=== PATIENT | male | born 1960 | race Caucasian/White ===

== ENCOUNTER 2016-09-18 08:50 | Observation (INO) | payer MEDICARE, OTHER ==
[2016-09-18] MEDS ORDERED: Sodium Chloride 0.9% 1,000 ML IV ONE (09:20)
[2016-09-18] MEDS ORDERED: Sodium Chloride 0.9% 1,000 ML ONE (09:34)
[2016-09-18 09:40] LABS: BASO % 0.8 % (0.0-2.0); EOS # 0.1 K/uL (0.0-0.7); EOS % 1.3 % (0.0-4.0); HEMATOCRIT 45.6 % (35.0-51.0); LYMPH # 1.1 K/uL (1.0-4.3); LYMPH % 22.6 % (20.0-40.0); MEAN CELL VOLUME 95.9 fL (80.0-94.0); MEAN CORPUSCULAR HEMOGLOBIN 32.1 pg (27.0-31.0); MEAN CORPUSCULAR HGB CONC 33.5 g/dL (33.0-37.0); MEAN PLATELET VOLUME 8.3 fL (7.2-11.7); MONO # 0.4 K/uL (0.0-0.8); MONO % 9.1 % (0.0-10.0); RED CELL DISTRIBUTION WIDTH 13.7 % (11.5-14.5); WHITE BLOOD COUNT 4.7 K/uL (4.8-10.8)
[2016-09-18 09:45] LABS: CHLORIDE 101 mmol/L (98-107); POTASSIUM 3.7 mmol/L (3.6-5.2); SODIUM 135 mmol/L (132-148)
[2016-09-18 09:47] LABS: BILIRUBIN,TOTAL 0.6 mg/dL (0.2-1.3); CARBON DIOXIDE 23 mmol/L (22-30); GFR AFRICAN-AMERICAN > 60
[2016-09-18 09:48] LABS: ALB/GLOB RATIO 1.6 (1.0-2.1); ALKALINE PHOSPHATASE 66 U/L (38-126); ALT/SGPT 39 U/L (21-72); AST/SGOT 34 U/L (17-59); BLOOD UREA NITROGEN 13 mg/dL (9-20); CALCIUM 9.3 mg/dl (8.6-10.4); GLUCOSE,RANDOM 97 mg/dL (75-110); TOTAL PROTEIN 7.4 g/dL (6.3-8.3)
[2016-09-18 09:59] LABS: RBC URINE < 1 /hpf (0-3); URINE BILIRUBIN NEGATIVE (NEGATIVE); URINE BLOOD NEGATIVE (NEGATIVE); URINE COLOR Straw (YELLOW); URINE GLUCOSE (UA) NORMAL (Normal); URINE KETONE NEGATIVE (NEGATIVE); URINE LEUKOCYTE ESTERASE NEG Leu/uL (Negative); URINE PROTEIN NEGATIVE (NEGATIVE); URINE UROBILINOGEN NORMAL mg/dL (0.2-1.0)
--- NOTE | 2016-09-18 11:19 | C.PDOC ---
History Of Present Illness A 56 y/o male presents to the ER c/o left sided abdominal pain for a few days. Pt denies nausea, vomiting, diarrhea, fever, chills, trauma to the area, or any other complaints. Pt admits to drinking 3 beers a day. Pt has been evaluated at [facility] [place] and was admitted for an inflamed pancreas then the pt signed out AMA. Time Seen by Provider: 09/18/16 09:06 Chief Complaint (Nursing): Abdominal Pain History Per: Patient History/Exam Limitations: language barrier Onset/Duration Of Symptoms: Days Current Symptoms Are (Timing): Still Present Severity: Mild Location Of Pain/Discomfort: LUQ, LLQ Associated Symptoms: denies: Fever, Nausea, Vomiting Recent travel outside of the [place]: No Additional History Per: Patient Past Medical History Reviewed: Historical Data, Nursing Documentation, Vital Signs Vital Signs: Last Vital Signs Temp 97.9 F 09/18/16 08:55 Pulse 75 09/18/16 11:23 Resp 18 09/18/16 11:23 BP 126/81 09/18/16 11:23 Pulse Ox 99 09/18/16 11:23 - Medical History PMH: Hiatal Hernia (repaired), Pancreatitis Family History: States: Unknown Family Hx - Social History Hx Tobacco Use: Yes Hx Alcohol Use: Yes Hx Substance Use: No - Immunization History Hx Tetanus Toxoid Vaccination: Yes Hx Influenza Vaccination: Yes Hx Pneumococcal Vaccination: No Review Of Systems Except As Marked, All Systems Reviewed And Found Negative. Constitutional: Negative for: Fever, Chills, Other (Trauma to the area) Gastrointestinal: Positive for: Abdominal Pain. Negative for: Nausea, Vomiting , Diarrhea Physical Exam - Physical Exam Appears: Non-toxic, No Acute Distress Skin: Warm, Dry Head: Atraumatic, Normacephalic Eye(s): bilateral: Normal Inspection, EOMI Nose: Normal Cardiovascular: Rhythm Regular, No Murmur Respiratory: Normal Breath Sounds, No Rales, No Rhonchi, No Wheezing Gastrointestinal/Abdominal: Soft, Tenderness (Mild LUQ tenderness) Neurological/Psych: Oriented x3, Normal Speech, Normal Cognition, Other (No focal deficit) ED Course And Treatment - Laboratory Results Result Diagrams: 09/18/16 09:27 09/18/16 09:27 O2 Sat by Pulse Oximetry: 99 (RA) Pulse Ox Interpretation: Normal Progress Note: Impression: 56 y/o c/o left sided abdominal pain for a few days. Plans: Blood labs, Pepcid, Toradol, IV fluids, US abd, reassess and disposition. Patient is resting comfortably, abdomen remains soft, and patient is tolerating PO. Patient feels comfortable going home. Patient will be discharged home. - Scribe Statement The provider has reviewed the documentation as recorded by the Scribe Aliyah ashby All medical record entries made by the Scribe were at my direction and personally dictated by me. I have reviewed the chart and agree that the record accurately reflects my personal performance of the history, physical exam, medical decision making, and the department course for this patient. I have also personally directed, reviewed, and agree with the discharge instructions and disposition.
--- NOTE | 2016-09-18 11:39 | C.PDOC ---
History Of Present Illness A 56 y/o male presents to the ER c/o left sided abdominal pain since yesterday. Pt denies nausea, vomiting, diarrhea, fever, chills, trauma to the area, or any other complaints. Pt admits to drinking 3 beers a day. Pt has been evaluated at [facility] [place] and was admitted for an "inflamed pancreas" and "clogged arteries" then the pt signed out AMA. 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 [place] records evaluated: Lipase of 698; CT shows 4.9 infrarenal abdominal aortic aneurym . ) Past Medical History Reviewed: Historical Data, Nursing Documentation, Vital Signs Vital Signs: Last Vital Signs Temp 97.6 F 09/18/16 12:04 Pulse 74 09/18/16 12:04 Resp 16 09/18/16 12:04 BP 151/89 H 09/18/16 12:04 Pulse Ox 100 09/18/16 12:04 - Medical History PMH: Hiatal Hernia (repaired), Pancreatitis Family History: States: Unknown Family Hx - Social History Hx Tobacco Use: Yes Hx Alcohol Use: Yes Hx Substance Use: No - Immunization History Hx Tetanus Toxoid Vaccination: Yes Hx Influenza Vaccination: Yes Hx Pneumococcal Vaccination: No Review Of Systems Except As Marked, All Systems Reviewed And Found Negative. Constitutional: Negative for: Fever, Chills, Other (Trauma to the area) Gastrointestinal: Positive for: Abdominal Pain. Negative for: Nausea, Vomiting , Diarrhea Physical Exam - Physical Exam Appears: Well, Non-toxic, No Acute Distress Skin: Normal Color, Warm, Dry Head: Atraumatic, Normacephalic Eye(s): bilateral: Normal Inspection, EOMI Nose: Normal Oral Mucosa: Moist Neck: Normal, Normal ROM, Supple Chest: Symmetrical Cardiovascular: Rhythm Regular, No Murmur Respiratory: Normal Breath Sounds, No Accessory Muscle Use, Other (Speaking in full sentences) Gastrointestinal/Abdominal: Soft, Tenderness (Mild LUQ tenderness) Back: No CVA Tenderness, No Vertebral Tenderness Neurological/Psych: Oriented x3, Normal Speech, Other (No focal deficit) ED Course And Treatment - Laboratory Results Result Diagrams: 09/18/16 09:27 09/18/16 09:27 O2 Sat by Pulse Oximetry: 99 (RA) Progress Note: Impression: 56 y/o c/o left sided abdominal pain for a few days. Plans: Blood labs, Pepcid, Toradol, IV fluids, US abd. CAse discussed with Dr Galdamez, who agrees upon treatment and admission. Disposition - Disposition Disposition: HOSPITALIZED Disposition Time: 12:00 Condition: STABLE - Clinical Impression Clinical Impression: Abdominal pain, AAA (abdominal aortic aneurysm) - Scribe Statement The provider has reviewed the documentation as recorded by the Scribe Aliyah ashby All medical record entries made by the Scribe were at my direction and personally dictated by me. I have reviewed the chart and agree that the record accurately reflects my personal performance of the history, physical exam, medical decision making, and the department course for this patient. I have also personally directed, reviewed, and agree with the discharge instructions and disposition.
[2016-09-18 11:40] LABS: ALCOHOL SERUM < 10 mg/dl (0-10)
[2016-09-18] MEDS: Sodium Chloride 0.9% 1,000 ML IV SCH ×2 (14:12→23:45)
[2016-09-18 17:10] VITALS: RESP 20
[2016-09-19 01:26] VITALS: BP 121/73; PULSE 72; TEMP 97.7; O2SAT 95
--- NOTE | 2016-09-19 10:56 | CP.PCM.DIS ---
Provider - Provider Date of Admission: 09/18/16 11:32 Attending physician: Bowen Barrios MD Time Spent in preparation of Discharge (in minutes): 30 Hospital Course - Lab Results Lab Results: Most Recent Lab Values WBC 4.7 K/uL (4.8-10.8) L 09/18/16 09: RBC 4.76 Mil/uL (4.40-5.90) 09/18/16 09: Hgb 15.3 g/dL (12.0-18.0) 09/18/16 09: Hct 45.6 % (35.0-51.0) 09/18/16 09: MCV 95.9 fL (80.0-94.0) H 09/18/16 09: MCH 32.1 pg (27.0-31.0) H 09/18/16 09: MCHC 33.5 g/dL (33.0-37.0) 09/18/16 09: RDW 13.7 % (11.5-14.5) 09/18/16 09: Plt Count 137 K/uL (130-400) 09/18/16 09: MPV 8.3 fL (7.2-11.7) 09/18/16 09: Neut % (Auto) 66.2 % (50.0-75.0) 09/18/16 09: Lymph % (Auto) 22.6 % (20.0-40.0) 09/18/16 09: [place] % (Auto) 9.1 % (0.0-10.0) 09/18/16 09: Eos % (Auto) 1.3 % (0.0-4.0) 09/18/16 09: Baso % (Auto) 0.8 % (0.0-2.0) 09/18/16: Neut # 3.1 K/uL (1.8-7.0) 09/18/16 09: Lymph # 1.1 K/uL (1.0-4.3) 09/18/16 09:27 Swift # 0.4 K/uL (0.0-0.8) 09/18/16 09: Eos # 0.1 K/uL (0.0-0.7) 09/18/16: Baso # 0.0 K/uL (0.0-0.2) 09/18/16: Sodium 135 mmol/L (132-148) 09/18/16: Potassium 3.7 mmol/L (3.6-5.2) 09/18/16: Chloride 101 mmol/L (98-107) 09/18/16: Carbon Dioxide 23 mmol/L (22-30) 09/18/16: Anion Gap 15 (10-20) 09/18/16: BUN 13 mg/dL (9-20) 09/18/16: Creatinine 0.8 MG/DL (0.8-1.5) 09/18/16 Est GFR ( Amer) > 60 09/18/16 Est GFR (Non-Af Amer) > 60 09/18/16: Random Glucose 97 mg/dL (75-110) 09/18/16 Calcium 9.3 mg/dl (8.6-10.4) 09/18/16 Total Bilirubin 0.6 mg/dL (0.2-1.3) 09/18/16: AST 34 U/L (17-59) 09/18/16 ALT 39 U/L (21-72) 09/18/16: Alkaline Phosphatase 66 U/L (38-126) 09/18/16: Total Protein 7.4 g/dL (6.3-8.3) 09/18/16 Albumin 4.5 g/dL (3.5-5.0) 09/18/16 Globulin 2.9 gm/dL (2.2-3.9) 09/18/16 Albumin/Globulin Ratio 1.6 (1.0-2.1) 09/18/16 Lipase 158 U/L (23-300) 09/18/16: Urine Color Straw (YELLOW) 09/18/16: Urine Clarity Clear (Clear) 09/18/16: Urine pH 7.0 (5.0-8.0) 09/18/16 Ur Specific [place] 1.008 (1.003-1.030) 09/18/16 09:27 Urine Protein Negative mg/dL (NEGATIVE) 09/18/16 09:27 Urine Glucose (UA) Normal mg/dL (Normal) 09/18/16 09:27 Urine Ketones Negative mg/dL (NEGATIVE) 09/18/16 09:27 Urine Blood Negative (NEGATIVE) 09/18/16 09:27 Urine Nitrate Negative (NEGATIVE) 09/18/16 09:27 Urine Bilirubin Negative (NEGATIVE) 09/18/16 09:27 Urine Urobilinogen Normal mg/dL (0.2-1.0) 09/18/16 09:27 Ur Leukocyte Esterase Neg Jeri/uL (Negative) 09/18/16 09:27 Urine RBC (Auto) < 1 /hpf (0-3) 09/18/16 09:27 Urine Opiates Screen Negative (NEGATIVE) 09/18/16 09:28 Urine Methadone Screen Negative (NEGATIVE) 09/18/16 09:28 Ur Barbiturates Screen Negative (NEGATIVE) 09/18/16 09:28 Ur Phencyclidine Scrn Negative (NEGATIVE) 09/18/16 09:28 Ur Amphetamines Screen Negative (NEGATIVE) 09/18/16 09:28 U Benzodiazepines Scrn Negative (NEGATIVE) 09/18/16 09:28 U Oth Cocaine Metabols Negative (NEGATIVE) 09/18/16 09:28 U Cannabinoids Screen Negative (NEGATIVE) 09/18/16 09:28 Alcohol, Quantitative < 10 mg/dl (0-10) 09/18/16 09:27 - Hospital Course Hospital Course: A 56 y/o male presents to the ER c/o left sided abdominal pain since yesterday. Pt denies nausea, vomiting, diarrhea, fever, chills, trauma to the area, or any other complaints. Pt admits to drinking 3 beers a day. [place] [facility] [place] for an "inflamed pancreas" and "clogged arteries" then the pt signed out AMA. Discharge Plan - Follow Up Plan Condition: STABLE Disposition: AGAINST MEDICAL ADVICE
== END 2016-09-19 06:15 | disposition left against medical advice (07) ==
LOC: C.ER 08:50 → C.9E 11:32 → C.3T 11:45
PROVIDERS: ADMIT Internal Medicine; ATTEND Internal Medicine
DX: R10.9 Unspecified abdominal pain (principal); Z87.891 Personal history of nicotine dependence; F10.10 Alcohol abuse, uncomplicated
CPT/HCPCS: 80053; 81001; 83690; 85025; 96360; 96374; 99285; G0378; G0480; J1885; J7040